=== PATIENT | female | born 1980 | race Caucasian/White ===

== ENCOUNTER 2017-01-18 04:32 | Observation (INO) ==
[2017-01-18] MEDS ORDERED: diazePAM 5 MG TABLET PO ONE (05:00)
[2017-01-18] MEDS ORDERED: *HR* HYDROmorphone (PF) 1 MG/ML SYRINGE IM ONE (05:00)
--- NOTE | 2017-01-18 05:18 | Emergency Department Note ---
Disposition Clinical Impression: Lumbar radiculopathy, Intractable pain Disposition: Admitted As Inpatient Condition: Good Back Pain HPI - General Chief Complaint: ED Back Pain/Injury Stated Complaint: lower back pain Time Seen by Provider: 01/18/17 04:38 Source: patient, EMS Mode of arrival: ambulatory Limitations: no limitations Nursing Notes Reviewed: Yes Vital Signs Reviewed: Yes - History of Present Illness HPI Narrative: Patient presents to the ED with the chief complaint of low back pain. Patient has a long-standing history of back pain and has seen multiple specialists including neurology and pain management. She has had injections previously. States that she recently had a colonoscopy for rectal bleeding, which was unremarkable. States that she woke up yesterday with low back pain. It has been progressively worse since then. She describes it as bilateral in her lower back, across her sacrum, but his significant way, worse on the right. She complains of pain with range of motion of her right lower extremity. She states that this is the same pain as she has had previously, only more intense. No fever, chills, chest pain, shortness of breath, abdominal pain, nausea, vomiting, diarrhea, dysuria, hematuria, vaginal bleeding or discharge. She states that she has been moving around a lot more so than usual and was walking around at her son's T-ball game yesterday. She does state that she had one episode of urinary incontinence yesterday. Denies any numbness, tingling, weakness to her lower extremities. No saddle paresthesia. No associated trauma - Related Data Home Medications Medication Instructions Recorded Confirmed BuPROPion XL (24 HR) [Wellbutrin 150 mg PO DAILY 01/01/17 01/18/17 XL] Citalopram Hydrobromide 40 mg PO DAILY 01/01/17 01/18/17 [Citalopram HBr] Baclofen [Lioresal] 10 mg PO TID 01/18/17 01/18/17 Hydroxyzine HCl 50 mg PO QID PRN 01/18/17 01/18/17 Norgestimate-Ethinyl Estradiol 1 tab PO DAILY 01/18/17 01/18/17 [Sprintec 28 Day Tablet] Oxycodone HCl/Acetaminophen 1 tab PO Q6H PRN 01/18/17 01/18/17 [Percocet 7.5-325 mg Tablet] Allergies Allergy/AdvReac Type Severity Reaction Status Date / Time gabapentin Allergy Hives Verified 01/01/17 14:08 Penicillins Allergy Hives Verified 01/01/17 14:08 phenytoin [From Dilantin] Allergy Hives Verified 01/01/17 14:08 naproxen AdvReac See Verified 01/01/17 14:08 Comments All systems ED: reviewed and negative except as stated. Musculoskeletal: Reports: back pain, arthralgia Past Medical History - Past Medical History Attestation: Yes The following information was validated with the patient. Source: patient Medical history: Reports: arthritis, other Surgical history: Reports: appendectomy, cholecystectomy, other Psychiatric history: Reports: depression LIGHT TRUCK DRIVER history: Reports: no LIGHT TRUCK DRIVER history - Social History Smoking Status: Current every day smoker Smokeless Tobacco Status: No Alcohol use: Reports: occasionally Drug use: Reports: none Physical Exam - General Limitations: no limitations General appearance: alert, anxious, other (Appears to be in) - Head Head exam: atraumatic, normocephalic, normal inspection - Neck Neck exam: Present: normal inspection, full ROM, trachea midline - Chest Chest inspection: Present: normal inspection, symmetric chest wall rise - Respiratory Respiratory exam: Present: normal lung sounds bilaterally - Cardiovascular Cardiovascular exam: Present: regular rate, normal rhythm, normal heart sounds - Abdominal Exam Abdominal exam: Present: soft, Non-Tender. Absent: tenderness, distention, guarding, rebound, rigidity - Extremities Exam Extremities exam: Present: normal inspection, full ROM. Absent: tenderness, pedal edema - Expanded Lower Extremity Exam Hip/Pelvis exam: Present: tenderness (R hip, right piriformis). Absent: swelling, deformity, crepitus, dislocation, erythema Upper leg exam: Present: normal inspection, full ROM Knee exam: Present: normal inspection, full ROM Lower leg exam: Present: normal inspection, full ROM Ankle exam: Present: normal inspection, full ROM Foot/toe exam: Present: normal inspection, full ROM Neurovascular/Tendon exam: Present: normal capillary refill Gait: antalgic - Back Exam Back exam: Present: tenderness (Lower lumbar tenderness), muscle spasm, vertebral tenderness, straight leg raise (R). Absent: rashes - Neurological Exam Neurological exam: Present: alert, oriented X3 - Expanded Neurological Exam Patient oriented to: Present: person, place, time Speech: Present: fluid speech Motor strength - LUE: 5/5 Motor strength - RUE: 5/5 Motor strength - LLE: 5/5 Motor strength - RLE: 5/5 Upper motor neuron exam: allison neglect: Absent bilaterally Sensory exam upper extremity: light touch: Normal Sensory exam lower extremity: light touch: Normal DTR: bicep (L): 2+, bicep (R): 2+, patellar (L): 3+, patellar (R): 3+, Achilles tendon (L): 3+, Achilles tendon (R): 3+ Spinal cord function: Absent: saddle anesthesia Coma Scale Eye Opening: Spontaneous Coma Scale Motor Response: Obeys Commands Coma Scale Verbal Response: Oriented Coma Scale Total: 15 - Psychiatric Psychiatric exam: Present: normal affect, anxious. Absent: normal mood - Skin Skin exam: Present: warm, dry, intact, normal color Course Course Narrative: 29-year-old female presenting with atraumatic low back pain. History of low back pain. History rheumatoid arthritis. Has pain is similar to her previous episodes of back pain but more intense. Started yesterday and was awoken with pain. No fever. No IV drug use. We will get a CT and control her pain. - Reevaluation(s) Reevaluation #1: Lumbar CT is unchanged from previous, but does show significant degenerative changes. However, the patient is still in significant amount of pain, moaning, unable to find a position of comfort. The Dilaudid did help her pain. Initially, but the second dose, did not. Patient was redosed with very little relief. She still seems very much in pain. We will check labs, read as Dilaudid and will also add Ativan and Benadryl, as well as dexamethasone. We will likely need to admit the patient for intractable pain. She will be signed out to the daytime team, Dr. García and Dr. Zhang. Time: 06:50 Vital Signs Temperature 98 F 01/18/17 04:34 Pulse Rate 96 01/18/17 04:34 Respiratory Rate 18 01/18/17 04:34 Blood Pressure 164/105 01/18/17 04:34 O2 Sat by Pulse Oximetry 98 01/18/17 04:34 Temperature 98.8 F 01/18/17 15:50 Pulse Rate 119 01/18/17 15:50 Respiratory Rate 18 01/18/17 15:50 Blood Pressure 158/78 01/18/17 15:50 O2 Sat by Pulse Oximetry 92 01/18/17 15:50 Oxygen Delivery Oxygen Delivery Room Air Back Pain/Injury - Lab Data Result diagrams: 01/18/17 04:50 01/18/17 04:50 Lab Results 01/18/17 01/18/17 01/18/17 Range/Units 04:50 04:50 04:50 WBC 10.2 (4.3-11.1) K/mcL RBC 4.07 (3.82-4.97) M/mcL Hgb 13.1 (11.5-15.4) g/dL Hct 40.9 (35.3-44.9) % MCV 100.5 H (83.0-100.0) fL MCH 32.2 (28.0-33.3) pg MCHC 32.0 (31.6-35.5) g/dL RDW 12.8 (11.5-14.5) % Plt Count 283 (140-400) K/mcL MPV 9.2 L (9.4-12.4) fL Immature Gran % 0.4 (0-4) % Seg Neutrophils % 56.5 % Lymphocytes % 28.5 % Monocytes % 9.6 % Eosinophils % 4.0 % Basophils % 1.0 % Neutrophils # 5.7 (1.6-8.9) K/mcL Lymphocytes # 2.9 (0.6-4.6) K/mcL Monocytes # 1.0 (0.0-1.3) K/mcL Eosinophils # 0.4 (0.0-0.6) K/mcL Basophils # 0.1 (0.0-0.2) K/mcL ESR 28 H (0-15) mm/hr Sodium 140 (136-145) mEq/L Potassium 3.7 (3.5-4.5) mEq/L Chloride 103 (98-109) mEq/L Carbon Dioxide 29 (19-29) mEq/L BUN 10 (7-20) mg/dL Creatinine 0.84 (0.57-1.11) mg/dL Est GFR ( Amer) > 60 (> 60) Est GFR (Non-Af Amer) > 60 (> 60) BUN/Creatinine Ratio 12 (6-26) Glucose 94 (70-99) mg/dL Calculated Osmolality 289 (280-300) Calcium 8.9 (8.6-10.8) mg/dL C-Reactive Protein 13 H (Less than 5) mg/L S.B.A.R. - S.B.A.R. Situation: Demographics, MOA Background: Presenting Complaint, Relevant PMH, Meds, & Allergies Assessment: Vital Signs, Course and respsone to treatment, Exam Concerns, Patient/Family Expectation, Pertinant Lab Results, Outstanding Labs Recommendation: Barrier(s) to disposition, Recommendation based on pending studies, treatments, or consults S.B.A.R. Report Given to: Dr. Vicente Juarez Repor Time: 06:53 Attestation Statement - Attestation Attestation: I, Contreras Tejeda MD, personally performed a history and physical exam of the patient and discussed their management with the resident. I reviewed the resident's note and agree with the documented findings, medical decision making , and plan of care. 37-year-old female with history of chronic lower back pain presents to the emergency department with a complaint of acute worsening of her lower back pain over the past one day. She awoke yesterday morning with increased pain and the discomfort progressively worse throughout the day and night. No fall or other new injuries. Pain is across the lower back but worse on the right side and into the right hip. Some radiation into the right leg. No new numbness tingling or weakness. No new or different symptoms however patient states pain is just worse than usual. She is [facility] for her back pain and also sees pain management and neurology. She has had previous MRIs and injections with no prior back surgery. She states that she did have an episode of some urinary incontinence yesterday. She has had this symptom once previously also. On examination patient is a well-developed obese female in no acute distress but appears to be in moderate discomfort. She is alert and oriented 3. There is no cyanosis or diaphoresis. Breath sounds are clear and equal bilaterally. Heart regular with a mild tachycardia. Abdomen soft and nontender with normal bowel sounds. Diffuse lumbar area tenderness. Straight leg raising is positive on the right. DTRs are increased but equal bilaterally. Normal dorsiflexion and plantarflexion of feet and toes. CT of the lumbar spine shows some degenerative changes and disc bulge but no significant spinal stenosis and no significant change from previous MRI from . Patient continued to have severe pain despite multiple medications. Lab work was ordered and at shift change the patient is being signed out to the oncoming dayshift team, Dr. Zhang and Dr. garcía.
[2017-01-18] MEDS ORDERED: *HR* HYDROmorphone 2 MG/ML SYRINGE IM ONE (06:07)
[2017-01-18] MEDS: *HR* HYDROmorphone 2 MG/ML SYRINGE IM ONE ×2 (06:38→06:50)
[2017-01-18] MEDS ORDERED: *HR* LORazepam 2 MG/ML VIAL IVP ONE (06:44)
[2017-01-18] MEDS ORDERED: *HR* HYDROmorphone (PF) 1 MG/ML SYRINGE IVP ONE (06:44)
[2017-01-18] MEDS ORDERED: Dexamethasone 4 MG/ML VIAL IVP ONE (06:48)
[2017-01-18 07:25] LABS: Basophils # 0.1 K/mcL (0.0-0.2); Eosinophils # 0.4 K/mcL (0.0-0.6); Hematocrit 40.9 % (35.3-44.9); Hemoglobin 13.1 g/dL (11.5-15.4); Immature Granulocytes % 0.4 % (0-4); Lymphocytes # 2.9 K/mcL (0.6-4.6); Lymphocytes % 28.5 %; Mean Corpuscular Hemoglobin 32.2 pg (28.0-33.3); Mean Corpuscular Volume 100.5 fL (83.0-100.0); Mean Platelet Volume 9.2 fL (9.4-12.4); Monocytes % 9.6 %; Neutrophils # 5.7 K/mcL (1.6-8.9); Platelet Count 283 K/mcL (140-400); Red Blood Count 4.07 M/mcL (3.82-4.97); Red Cell Distribution Width 12.8 % (11.5-14.5); Segmented Neutrophils % 56.5 %
[2017-01-18 07:26] LABS: BUN/Creatinine Ratio 12 (6-26); Blood Urea Nitrogen 10 mg/dL (7-20); C-Reactive Protein 13 mg/L (Less than 5); Calcium 8.9 mg/dL (8.6-10.8); Carbon Dioxide 29 mEq/L (19-29); Chloride 103 mEq/L (98-109); Glucose 94 mg/dL (70-99); Osmolality,Calculated 289 (280-300); Potassium 3.7 mEq/L (3.5-4.5); Sodium 140 mEq/L (136-145); eGFR For African Americans > 60 (> 60); eGFR For Non-African Americans > 60 (> 60)
[2017-01-18] MEDS ORDERED: Naloxone 0.4 MG/ML INJ IVP PRN (08:17)
[2017-01-18] MEDS ORDERED: hydrOXYzine pamoate 25 MG CAPSULE PO PRN (08:18)
--- NOTE | 2017-01-18 08:42 | Emergency Department Note ---
Disposition Clinical Impression: Lumbar radiculopathy, Intractable pain Disposition: Admitted As Inpatient Condition: Good Time of Disposition: 08:11 Back Pain HPI - General Chief Complaint: ED Back Pain/Injury Stated Complaint: lower back pain Time Seen by Provider: 01/18/17 04:38 Source: patient, EMS Limitations: no limitations Nursing Notes Reviewed: Yes Vital Signs Reviewed: Yes - History of Present Illness HPI Narrative: Pt Came in over night and taken care of Dr Tejeda and Dr Logan. Please see their note. - Related Data Home Medications Medication Instructions Recorded Confirmed BuPROPion XL (24 HR) [Wellbutrin 150 mg PO DAILY 01/01/17 01/18/17 XL] Citalopram Hydrobromide 40 mg PO DAILY 01/01/17 01/18/17 [Citalopram HBr] Baclofen [Lioresal] 10 mg PO TID 01/18/17 01/18/17 Hydroxyzine HCl 50 mg PO QID PRN 01/18/17 01/18/17 Norgestimate-Ethinyl Estradiol 1 tab PO DAILY 01/18/17 01/18/17 [Sprintec 28 Day Tablet] Oxycodone HCl/Acetaminophen 1 tab PO Q6H PRN 01/18/17 01/18/17 [Percocet 7.5-325 mg Tablet] Allergies Allergy/AdvReac Type Severity Reaction Status Date / Time gabapentin Allergy Hives Verified 01/01/17 14:08 Penicillins Allergy Hives Verified 01/01/17 14:08 phenytoin [From Dilantin] Allergy Hives Verified 01/01/17 14:08 naproxen AdvReac See Verified 01/01/17 14:08 Comments Review of Systems: Please see Dr Key note. All systems ED: reviewed and negative except as stated. 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 TELEMARKETING history - Social History Smoking Status: Current every day smoker Smokeless Tobacco Status: No Alcohol use: Reports: occasionally Drug use: Reports: none Physical Exam - General Limitations: no limitations General appearance: alert, anxious, other (Appears to be in pain) - Head Head exam: atraumatic, normocephalic, normal inspection - Eye Eye exam: Present: normal appearance, EOMI - ENT ENT exam: normal exam - Neck Neck exam: Present: normal inspection, full ROM, trachea midline - Chest Chest inspection: Present: normal inspection - Respiratory Respiratory exam: Present: normal lung sounds bilaterally. Absent: respiratory distress - Cardiovascular Cardiovascular exam: Present: regular rate, normal rhythm, normal heart sounds - Abdominal Exam Abdominal exam: Present: soft, Non-Tender - Extremities Exam Extremities exam: Present: normal inspection, full ROM, normal capillary refill. Absent: tenderness, pedal edema - Neurological Exam Neurological exam: Present: alert, oriented X3 Course Course Narrative: Assume care from Dr. Logan. Patient has ambulated throughout the department without assistance several times however she is moaning while she is in bed. She states that her pain is still there and is requesting admission to the hospital for pain management. Dr Trimble accepted Pt in stable condition. Vital Signs Temperature 98 F 01/18/17 04:34 Pulse Rate 96 01/18/17 04:34 Respiratory Rate 18 01/18/17 04:34 Blood Pressure 164/105 01/18/17 04:34 O2 Sat by Pulse Oximetry 98 01/18/17 04:34 Temperature 98.4 F 01/18/17 10:51 Pulse Rate 57 01/18/17 10:51 Respiratory Rate 20 01/18/17 10:51 Blood Pressure 174/92 01/18/17 10:51 O2 Sat by Pulse Oximetry 100 01/18/17 10:51 Oxygen Delivery Oxygen Delivery Room Air Back Pain/Injury - Medical Records Medical records reviewed: Yes I reviewed the patient's medical records. - Lab Data Result diagrams: 01/18/17 04:50 01/18/17 04:50 Lab Results 01/18/17 01/18/17 01/18/17 Range/Units 04:50 04:50 04:50 WBC 10.2 (4.3-11.1) K/mcL RBC 4.07 (3.82-4.97) M/mcL Hgb 13.1 (11.5-15.4) g/dL Hct 40.9 (35.3-44.9) % MCV 100.5 H (83.0-100.0) fL MCH 32.2 (28.0-33.3) pg MCHC 32.0 (31.6-35.5) g/dL RDW 12.8 (11.5-14.5) % Plt Count 283 (140-400) K/mcL MPV 9.2 L (9.4-12.4) fL Immature Gran % 0.4 (0-4) % Seg Neutrophils % 56.5 % Lymphocytes % 28.5 % Monocytes % 9.6 % Eosinophils % 4.0 % Basophils % 1.0 % Neutrophils # 5.7 (1.6-8.9) K/mcL Lymphocytes # 2.9 (0.6-4.6) K/mcL Monocytes # 1.0 (0.0-1.3) K/mcL Eosinophils # 0.4 (0.0-0.6) K/mcL Basophils # 0.1 (0.0-0.2) K/mcL ESR 28 H (0-15) mm/hr Sodium 140 (136-145) mEq/L Potassium 3.7 (3.5-4.5) mEq/L Chloride 103 (98-109) mEq/L Carbon Dioxide 29 (19-29) mEq/L BUN 10 (7-20) mg/dL Creatinine 0.84 (0.57-1.11) mg/dL Est GFR ( Amer) > 60 (> 60) Est GFR (Non-Af Amer) > 60 (> 60) BUN/Creatinine Ratio 12 (6-26) Glucose 94 (70-99) mg/dL Calculated Osmolality 289 (280-300) Calcium 8.9 (8.6-10.8) mg/dL C-Reactive Protein 13 H (Less than 5) mg/L - Radiology Data Radiology results reviewed: Yes I reviewed the patient's radiology results. Hip CT 01/18/17 05:03 IMPRESSION: No acute osseous abnormality of the right hip. Mild osteoarthrosis. D/ / 01/18/2017 07:17:19 [email or web address] Interpreting Provider: Jamie Leblanc MD Lumbar Spine CT 01/18/17 05:03 IMPRESSION: Scoliosis, associated with multilevel spondylosis. L5-S1 left paracentral disc protrusion and moderate left foraminal narrowing. L4-5 mild posterior disc bulge. The findings are not significantly changed compared with 08/30/2015. D/ / Mendoza Christian MD / Mendoza Christian MD Interpreting Provider: Mendoza Christian MD Attestation Statement - Attestation Attestation: I examined this patient and my medical decision-making was reviewed with the BACK HOE MACHINE OPERATOR/PA/Advanced Practice Nurse/Resident Physician. I agree with the documented findings, disposition and treatment plan as described except to the extent set forth below. Patient signed out pending labs. Lab studies unremarkable. No white count. Sedimentation rate and CRP within acceptable range. She is admitted for intractable back pain.
[2017-01-18] MEDS: Famotidine 20 MG TABLET PO SCH ×2 (09:12→19:48)
[2017-01-18] MEDS: *HR* Morphine 2 MG/ML SYRINGE IVP PRN ×2 (09:12→13:37)
[2017-01-18] MEDS: BuPROPion XL (24 HR) 150 MG TABLET PO SCH (09:12)
[2017-01-18] MEDS: Baclofen 10 MG TABLET PO SCH ×3 (09:12→19:48)
[2017-01-18] MEDS: Ketorolac 30 MG/ML VIAL IVP PRN (11:00)
[2017-01-18] MEDS: *HR* OxyCODONE/APAP 7.5/325 TABLET PO PRN ×2 (12:06→19:48)
--- NOTE | 2017-01-18 12:12 | Internal Med History&Physical ---
Date of Encounter: 01/18/17 Time of Encounter: 12:10 Assessment and Plan (1) Intractable pain Current visit: Yes Status: Acute this is probably an exacerbation of chronic back pain. she follows with pain management doctor at [facility] and has had multiple injections. She was given multiple Dilaudid shots at the ED, she still complains of persistent pain. He reports that the pain medication does not last long even though if it works for a while. Will add Percocet with IV Toradol for moderate and morphine for severe pain. CT did not show any new abnormality or pathology at this time. If the pain is still persistent, may consider calling pain management. will also consult PT/OT (2) Rheumatoid arthritis Current visit: Yes Status: Acute follows with her quartz mounter at [facility]. she reports mainly the pain is at her hands and the back. Qualifiers: Rheumatoid arthritis location: unspecified site Rheumatoid factor presence : unspecified presence Qualified Code(s): M06.9 - Rheumatoid arthritis, unspecified Internal Medicine - H&P: HPI Chief complaint: back pain Admitted From: Home Plans for Post Hospital Care: Home History of present illness: Ms. Simpson is a 37 year old female with PMH of Rheumatoid arthritis and long -standing history of back pain and has seen multiple specialists including neurology and pain management. She has had injections previously. States that she recently had a colonoscopy for rectal bleeding, which was unremarkable. States that she woke up yesterday with low back pain. It has been progressively worse since then. She describes it as bilateral in her lower back, across her sacrum, worse on the right. She complains of pain with range of motion of her right lower extremity. She states that this is the same pain as she has had previously, only more intense. No fever, chills, chest pain, shortness of breath, abdominal pain, nausea, vomiting, diarrhea, dysuria, hematuria, vaginal bleeding or discharge. She states that she has been moving around a lot more so than usual and was walking around at her son's T-ball game yesterday. She does state that she had one episode of urinary incontinence yesterday. Denies any numbness, tingling, weakness to her lower extremities. No saddle paresthesia. No associated trauma. CT lumbar spine was done that does not show any new changes. she is being admitted for pain control. Past Med Surg Social Fam HX - Past Medical History Medical history: arthritis, other Psychiatric history: depression - Past Surgical History Surgical History: appendectomy, cholecystectomy, other - Social History Smoking Status: Current every day smoker Packs per day: <1 Smokeless Tobacco Status: No Alcohol use: occasionally Drug use: none - Family History Father Hx Family Cardiac Disorders: Yes Hx Family Endocrine Disorder: Yes (diabetes) Internal Medicine - H&P: Meds BuPROPion XL (24 HR) [Wellbutrin XL] 150 mg PO DAILY 01/01/17 [History] Citalopram Hydrobromide [Citalopram HBr] 40 mg PO DAILY 01/01/17 [History] Baclofen [Lioresal] 10 mg PO TID 01/18/17 [History] Hydroxyzine HCl 50 mg PO QID PRN 01/18/17 [History] Norgestimate-Ethinyl Estradiol [Sprintec 28 Day Tablet] 1 tab PO DAILY 01/18/17 [History] Oxycodone HCl/Acetaminophen [Percocet 7.5-325 mg Tablet] 1 tab PO Q6H PRN [History] Allergies gabapentin Allergy (Verified 01/01/17 14:08) Hives Penicillins Allergy (Verified 01/01/17 14:08) Hives phenytoin [From Dilantin] Allergy (Verified 01/01/17 14:08) Hives naproxen Adverse Reaction (Verified 01/01/17 14:08) See Comments "Eats my bowel lining." All Systems PM: A 10-system review of systems was performed and is negative for pertinent findings except as documented above in the HPI. - Constitutional Vitals: Temp Pulse Resp BP Pulse Ox 98.4 F 57 20 174/92 100 01/18/17 10:51 01/18/17 10:51 01/18/17 10:51 01/18/17 10:51 01/18/17 10:51 General appearance: Present: mild distress, A&O X 3 Exam: - Head Head exam: atraumatic, normocephalic, normal inspection - Neck Neck exam: Present: normal inspection, full ROM, trachea midline - Chest Chest inspection: Present: normal inspection, symmetric chest wall rise - Respiratory Respiratory exam: Present: normal lung sounds bilaterally - Cardiovascular Cardiovascular exam: Present: regular rate, normal rhythm, normal heart sounds - Abdominal Exam Abdominal exam: Present: soft, Non-Tender. Absent: tenderness, distention, guarding, rebound, rigidity - Extremities Exam Extremities exam: Present: normal inspection, full ROM. Absent: tenderness, pedal edema Gait: antalgic - Back Exam Back exam: Present: tenderness (Lower lumbar tenderness) more on the right side , muscle spasm, Absent: rashes - Neurological Exam Neurological exam: Present: alert, oriented X3 Internal Med - H&P Results - Labs CBC & Chem 7: 01/18/17 04:50 01/18/17 04:50
[2017-01-19] MEDS: *HR* Morphine 2 MG/ML SYRINGE IVP PRN ×2 (00:48→08:13)
[2017-01-19] MEDS: Ketorolac 30 MG/ML VIAL IVP PRN ×2 (01:41→14:27)
[2017-01-19 05:15] LABS: Basophils # 0.1 K/mcL (0.0-0.2); Basophils % 0.5 %; Eosinophils # 0.1 K/mcL (0.0-0.6); Eosinophils % 0.5 %; Hematocrit 36.9 % (35.3-44.9); Hemoglobin 11.9 g/dL (11.5-15.4); Immature Granulocytes % 0.7 % (0-4); Lymphocytes # 2.6 K/mcL (0.6-4.6); Lymphocytes % 16.9 %; Mean Corpuscular HGB Conc 32.2 g/dL (31.6-35.5); Mean Corpuscular Hemoglobin 32.1 pg (28.0-33.3); Mean Corpuscular Volume 99.5 fL (83.0-100.0); Mean Platelet Volume 9.1 fL (9.4-12.4); Monocytes # 1.4 K/mcL (0.0-1.3); Monocytes % 8.9 %; Neutrophils # 11.2 K/mcL (1.6-8.9); Platelet Count 268 K/mcL (140-400); Red Blood Count 3.71 M/mcL (3.82-4.97); Red Cell Distribution Width 12.7 % (11.5-14.5); Segmented Neutrophils % 72.5 %
[2017-01-19] MEDS: *HR* OxyCODONE/APAP 7.5/325 TABLET PO PRN (05:15)
[2017-01-19 05:22] LABS: BUN/Creatinine Ratio 15 (6-26); Blood Urea Nitrogen 12 mg/dL (7-20); Calcium 9.1 mg/dL (8.6-10.8); Carbon Dioxide 25 mEq/L (19-29); Chloride 106 mEq/L (98-109); Glucose 125 mg/dL (70-99); Osmolality,Calculated 289 (280-300); Potassium 4.1 mEq/L (3.5-4.5); Sodium 139 mEq/L (136-145); eGFR For African Americans > 60 (> 60); eGFR For Non-African Americans > 60 (> 60)
[2017-01-19] MEDS: Baclofen 10 MG TABLET PO SCH ×3 (08:13→21:37)
[2017-01-19] MEDS: BuPROPion XL (24 HR) 150 MG TABLET PO SCH (08:13)
[2017-01-19] MEDS: Famotidine 20 MG TABLET PO SCH ×2 (08:13→21:36)
[2017-01-19] MEDS ORDERED: diazePAM 10 MG/2 ML SYRINGE IVP STA (09:13)
[2017-01-19] MEDS: *HR* OxyCODONE Immed Rel 5 MG TABLET PO PRN ×2 (10:54→17:10)
--- NOTE | 2017-01-19 19:15 | Internal Med Progress Note ---
Date of Encounter: 01/19/17 Time of Encounter: 08:45 - Assessment and plan (1) Intractable pain Current Visit: Yes Status: Acute Assessment and plan: Patient with history of chronic lower back pain. I called [facility] pain clinic to speak with patient's pain doctor Dr. Jv quinteros but he was not in the office and his physician marketing operations assistant Rashaun kindly spoke to me. Patient has been treated at [facility] pain clinic for a skeletal strain and myalgia. She had nerve block at S1-S4 level on June 2016. Her last follow-up appointment was December 18 and she was referred to [place] [facility] to be seen by Dr. yee and have an MRI of the lumbar spine. Reviewing our prior records, patient had an epidural injection on 11/22/15. Patient had MRI of the lumbar spine on August 27 showing disease and osteophytes resulting in narrowing of the neuroforamina on the right T11-T12, right L4-L5, left L5-S1. No significant stenosis of the thecal sac in the lumbar region. This admission, CT of the lumbar spine revealed scoliosis, multilevel spondylolisthesis, L5-S1 left paracentral this presentation, moderate left foraminal narrowing, L4-L5 mild posterior disc bulge. Findings are unchanged compared to 08/30/2015. CT of the Hip showed no acute rashes abnormality, mild osteoarthrosis. I explained to the patient my conversation with Darlene, her test results , her diagnosis and treatment. I will start patient on IV Valium or muscle relaxants sensation and continue oral pain medications. If pain improves, I will discharge patient to home tomorrow. Patient verbalized understanding and agree with the plan. (2) Rheumatoid arthritis Current Visit: Yes Status: Chronic Qualifiers: Rheumatoid arthritis location: unspecified site Rheumatoid factor presence : unspecified presence Qualified Code(s): M06.9 - Rheumatoid arthritis, unspecified - Subjective Interval history: Patient reports severe lower back pain on exertion. No nausea. No vomiting. - Constitutional Vitals: Temp Pulse Resp BP Pulse Ox 98.8 F 86 16 138/81 96 01/19/17 14:55 01/19/17 14:55 01/19/17 14:55 01/19/17 14:55 01/19/17 14:55 General appearance: Present: cooperative, mild distress, A&O X 3, pleasant, answers questions appropriately - Neck Neck exam general surgery: Present: supple, trachea midline. Absent: lymphadenopathy - Respiratory Respiratory exam: Present: CTAB - Cardiovascular Cardiovascular exam: Present: RRR - GI/Abdominal GI/Abdominal exam: Present: normal bowel sounds, soft. Absent: distended, tenderness - Extremities Exam Extremities exam: Absent: pedal edema - Back Exam Back exam: Absent: CVA tenderness (L), CVA tenderness (R) - Neurological Exam Neurological exam: Present: alert, oriented X3, no focal deficits, strengths equal and symetr throughout. Absent: facial droop, speech deficit - Skin Skin exam: Absent: rash Internal Medicine: Result - Labs CBC & Chem 7: 01/19/17 04:13 01/19/17 04:13 Labs: Short CBC 01/19/17 Range/Units 04:13 WBC 15.4 H D (4.3-11.1) K/mcL Hgb 11.9 (11.5-15.4) g/dL Hct 36.9 (35.3-44.9) % Plt Count 268 (140-400) K/mcL Neutrophils # 11.2 H (1.6-8.9) K/mcL BMP 01/19/17 04:13 Sodium 139 Potassium 4.1 Chloride 106 Carbon Dioxide 25 BUN 12 Creatinine 0.80 Glucose 125 H Calcium 9.1 Consult Discharge Plan - Plan Referrals: Gian Cancino MD [Primary Care Provider] -
[2017-01-19] MEDS ORDERED: diazePAM 5 MG TABLET PO PRN (20:00)
[2017-01-20] MEDS: *HR* OxyCODONE Immed Rel 5 MG TABLET PO PRN ×2 (02:25→08:46)
[2017-01-20 03:04] LABS: Basophils # 0.1 K/mcL (0.0-0.2); Basophils % 0.7 %; Eosinophils # 0.3 K/mcL (0.0-0.6); Eosinophils % 2.4 %; Hematocrit 36.9 % (35.3-44.9); Hemoglobin 12.1 g/dL (11.5-15.4); Immature Granulocytes % 0.5 % (0-4); Lymphocytes # 3.8 K/mcL (0.6-4.6); Lymphocytes % 31.7 %; Mean Corpuscular HGB Conc 32.8 g/dL (31.6-35.5); Mean Corpuscular Hemoglobin 32.6 pg (28.0-33.3); Mean Corpuscular Volume 99.5 fL (83.0-100.0); Mean Platelet Volume 9.1 fL (9.4-12.4); Monocytes # 0.8 K/mcL (0.0-1.3); Monocytes % 6.9 %; Neutrophils # 6.9 K/mcL (1.6-8.9); Platelet Count 248 K/mcL (140-400); Red Blood Count 3.71 M/mcL (3.82-4.97); Red Cell Distribution Width 12.9 % (11.5-14.5); Segmented Neutrophils % 57.8 %
[2017-01-20 03:19] LABS: BUN/Creatinine Ratio 17 (6-26); Blood Urea Nitrogen 14 mg/dL (7-20); Calcium 8.7 mg/dL (8.6-10.8); Carbon Dioxide 24 mEq/L (19-29); Chloride 107 mEq/L (98-109); Glucose 127 mg/dL (70-99); Magnesium 1.4 mg/dL (1.6-2.6); Osmolality,Calculated 292 (280-300); Phosphorous 3.3 mg/dL (2.3-4.7); Potassium 3.8 mEq/L (3.5-4.5); Sodium 140 mEq/L (136-145); eGFR For African Americans > 60 (> 60); eGFR For Non-African Americans > 60 (> 60)
[2017-01-20 06:43] VITALS: BP 156/75
[2017-01-20] MEDS ORDERED: Magnesium Sulfate 1 GM in D5% in Water 100 ML IVPB ONE (07:36)
[2017-01-20] MEDS: Ketorolac 30 MG/ML VIAL IVP PRN (07:38)
[2017-01-20] MEDS: BuPROPion XL (24 HR) 150 MG TABLET PO SCH (07:40)
[2017-01-20] MEDS: Baclofen 10 MG TABLET PO SCH (07:40)
[2017-01-20] MEDS: Famotidine 20 MG TABLET PO SCH (07:40)
--- NOTE | 2017-01-20 08:53 | Discharge Summary ---
Date of Encounter: 01/20/17 Time of Encounter: 08:30 - Discharge Diagnosis (1) Intractable pain Priority: Primary Status: Acute (2) Rheumatoid arthritis Priority: Secondary Status: Chronic Qualifiers: Rheumatoid arthritis location: unspecified site Rheumatoid factor presence : unspecified presence Qualified Code(s): M06.9 - Rheumatoid arthritis, unspecified - Discharge Medications Prescriptions: Diazepam [Valium] 5 mg PO BID PRN #10 tablet PRN Reason: Spasms Home Medications: BuPROPion XL (24 HR) [Wellbutrin Xl] 150 mg PO DAILY 01/01/17 [History] Citalopram Hydrobromide [Citalopram HBr] 40 mg PO DAILY 01/01/17 [History] Baclofen [Lioresal] 10 mg PO TID 01/18/17 [History] Hydroxyzine HCl 50 mg PO QID PRN 01/18/17 [History] Norgestimate-Ethinyl Estradiol [Sprintec 28 Day Tablet] 1 tab PO DAILY 01/18/17 [History] Oxycodone HCl/Acetaminophen [Percocet 7.5-325 mg Tablet] 1 tab PO Q6H PRN [History] Diazepam [Valium] 5 mg PO BID PRN #10 tablet 01/20/17 [Rx] Allergies/Adverse Reactions: Allergies gabapentin Allergy (Verified 01/01/17 14:08) Hives Penicillins Allergy (Verified 01/01/17 14:08) Hives phenytoin [From Dilantin] Allergy (Verified 01/01/17 14:08) Hives naproxen Adverse Reaction (Verified 01/01/17 14:08) See Comments "Eats my bowel lining." Date of admission: 01/18/17 08:27 Primary care physician: Gian Cancino MD - Patient Status Disposition: Home, Self-Care Condition: Good Functional capacity at discharge: independent ambulation Overall status at discharge: patient is progressing back to baseline - Discharge Instructions Follow Up With: Gian Cancino MD [Primary Care Provider] - (OFFICE IS CLOSED-PLEASE CALL SUNDAY FOR FOLLOW-UP IN 1 WEEK) Additional Instructions: PLEASE RETURN TO YOUR PAIN CLINIC THIS COMING SUNDAY JANUARY 22, 2017 FOR A FOLLOW UP VISIT. FOLLOW UP IN THE NEUROLOGY CLINIC AT [facility] RECOMMENDED BY YOUR PAIN CLINIC DOCTOR. STOP SMOKING. FOLLOW UP WITH YOUR PRIMARY CARE DOCTOR TO START A WEIGHT LOSS PROGRAM AND HELP YOU IN QUITTING SMOKING. TAKE MEDICATIONS PRESCRIBED. - Diet and Activity Activity: resume usual activities as tolerated Diet: low fat, low cholesterol, low salt diet, other Interval History: Patient reports her lower back pain is better compared to admission. She would like to go home and have a follow-up appointment at [facility] pain clinic this coming Sunday. She also called [place] [facility] clinic yesterday and requested a first-visit outpatient appointment as per Dr Carias's recommendation. Hospital course: Ms. Simpson is a 37 year old female with past medical history of chronic lower back pain and tobacco use. On 01/19, I called [facility] pain clinic to speak with patient's pain doctor Dr. Jv Montemayor; however, he was not in the office and his physician culinary assistant Rashaun kindly spoke to me. Patient has been treated at [facility] pain clinic for a musculoskeletal strain and myalgia. She had a nerve block at S1-S4 level on June 2016. Her last follow-up appointment was December 18 when she referred to [place] [facility] for her leg symptoms and an MRI of the lumbar spine. Reviewing our prior records, patient had an epidural injection on 11/22/15. Patient had MRI of the lumbar spine on August 2015 showing disease and osteophytes resulting in narrowing of the neuroforamina on the right T11-T12, right L4-L5, left L5-S1. No significant stenosis of the thecal sac in the lumbar region. This admission, CT of the lumbar spine revealed scoliosis, multilevel spondylolisthesis, L5-S1 left paracentral this presentation, moderate left foraminal narrowing, L4-L5 mild posterior disc bulge. Findings are unchanged compared to 08/30/2015. CT of the Hip showed no acute rashes abnormality, mild osteoarthrosis. Patient received IV Valium with some improvement of her lower back pain. PLAN: follow up at [facility] pain clinic this coming Sunday. f/u in the neurology clinic at [facility]. Patient verbalized understanding and agree with the plan. I answered all questions. - Time Spent with Patient Total time spent providing and/or coordinating discharge services: - Constitutional Vitals: Temp Pulse Resp BP Pulse Ox 97.7 F 90 20 156/75 95 01/20/17 06:41 01/20/17 06:41 01/20/17 06:41 01/20/17 06:41 01/20/17 06:41 General appearance: Present: cooperative, mild distress, A&O X 3, pleasant, answers questions appropriately - Respiratory Respiratory exam: Present: CTAB - Cardiovascular Cardiovascular exam: Present: RRR - GI/Abdominal GI/Abdominal exam: Present: normal bowel sounds, soft. Absent: distended, tenderness - Extremities Exam Extremities exam: Absent: pedal edema - Back Exam Back exam: Present: CVA tenderness (L), CVA tenderness (R), paraspinal tenderness - Neurological Exam Neurological exam: Present: alert, oriented X3, no focal deficits, strengths equal and symetr throughout. Absent: facial droop, speech deficit - Skin Skin exam: Absent: rash
[2017-01-20] MEDS ORDERED: *HR* OxyCODONE Immed Rel 5 MG TABLET PO ONE (12:04)
== END 2017-01-20 12:47 | disposition home or self-care (01) ==
LOC: EMEROO 04:32 → 3NENU 04:32
PROVIDERS: ADMIT Internal Medicine Endocrinology, Diabetes & Metabolism; ATTEND Internal Medicine

== ENCOUNTER 2018-12-19 12:10 | Observation (INO) ==
[2018-12-19 14:23] LABS: Bilirubin,Urine Small (Negative); Blood,Urine Negative (Negative); Clarity,Urine Clear (Clear); Color,Urine Dark Yellow (Yellow); Glucose,Urine (UA) Normal (Normal); Ketones,Urine Negative (Negative); Leukocyte Esterase,Urine Negative (Negative); Nitrite,Urine Negative (Negative); PH,Urine 5.5 pH Units (5.0-8.0); Protein,Urine 30 mg/dL (Neg-Trace); Specific Gravity,Urine 1.023 (1.010-1.025); Urobilinogen,Urine Normal (Normal)
[2018-12-19 14:27] LABS: Bacteria,Urine Few per hpf (None-Few); Hyaline Casts,Urine None Seen per lpf (None-Few); Squamous Epithelial Cell,Urine Many per lpf (None-Few)
[2018-12-19 14:59] LABS: Basophils # 0.1 K/mcL (0.0-0.2); Basophils % 0.4 %; Eosinophils # 0.4 K/mcL (0.0-0.6); Eosinophils % 3.2 %; Hematocrit 44.9 % (35.3-44.9); Immature Granulocytes % 0.3 % (0-4); Lymphocytes # 2.9 K/mcL (0.6-4.6); Mean Corpuscular HGB Conc 33.4 g/dL (31.6-35.5); Mean Corpuscular Hemoglobin 32.5 pg (28.0-33.3); Mean Corpuscular Volume 97.2 fL (83.0-100.0); Monocytes # 0.8 K/mcL (0.0-1.3); Neutrophils # 8.4 K/mcL (1.6-8.9); Platelet Count 330 K/mcL (140-400); Red Blood Count 4.62 M/mcL (3.82-4.97); Red Cell Distribution Width 13.1 % (11.5-14.5); Segmented Neutrophils % 67.1 %
[2018-12-19] MEDS ORDERED: *HR* FentaNYL (PF) 100 MCG/2 ML VIAL IVP ONE ×2 (15:14→17:55)
[2018-12-19] MEDS ORDERED: Ondansetron 4 MG/2 ML VIAL IVP ONE (15:14)
[2018-12-19 15:17] LABS: Alanine Aminotransferase 15 Units/L (7-52); Albumin/Globulin Ratio 1.2 (1.1-2.2); Alkaline Phosphatase 53 Units/L (34-104); Amylase 28 Units/L (29-103); Aspartate Amino Transferase 12 Units/L (13-39); BUN/Creatinine Ratio 13 (6-26); Bilirubin,Indirect 0.4 mg/dL (0.0-1.2); Bilirubin,Total 0.4 mg/dL (0.3-1.0); Blood Urea Nitrogen 11 mg/dL (6-20); Calcium 9.4 mg/dL (8.6-10.3); Carbon Dioxide 25 mEq/L (23-29); Chloride 103 mEq/L (98-107); Globulin 3.4 g/dL (2.4-3.5); Glucose 103 mg/dL (70-105); Lipase 6 Units/L (11-82); Osmolality,Calculated 282 (280-300); Potassium 3.9 mEq/L (3.5-5.1); Sodium 136 mEq/L (136-145); Total Protein 7.4 g/dL (6.4-8.9); eGFR For Non-African Americans > 60 (> 60)
--- NOTE | 2018-12-19 15:17 | Emergency Department Note ---
Disposition Clinical Impression: Ileus, Intractable nausea and vomiting, Abdominal pain Disposition: Admitted As Inpatient Condition: Fair Instructions: Abdominal Pain (ED) Referrals: NONE,PCP [Primary Care Provider] - Forms: ED Satisfaction Letter, Work/School Release General Adult HPI - General Chief complaint: ED Abdominal Pain Stated complaint: Vomiting,Consipation Time Seen by Provider: 12/19/18 12:59 - History of Present Illness Pain Scale: 7 - Related Data Home Medications Medication Instructions Recorded Confirmed RX: BuPROPion XL (24 HR) 150 mg PO DAILY 01/01/17 01/18/17 [Wellbutrin Xl] Percocet 7.5-325 mg Tablet 06/10/18 Previous Rx's Medication Instructions Recorded RX: PredniSONE [Deltasone] 60 mg PO DAILY 5 Days tablet 06/10/18 Ondansetron ODT [Zofran ODT] 4 mg SL Q8HR #20 tab.rapdis 12/17/18 Polyethylene Glycol 3350 [MiraLAX] 17 gm PO DAILY #10 powd.pack 12/17/18 Allergies Allergy/AdvReac Type Severity Reaction Status Date / Time gabapentin Allergy Hives Verified 12/19/18 13:13 Penicillins Allergy Hives Verified 12/19/18 13:13 phenytoin [From Dilantin] Allergy Hives Verified 12/19/18 13:13 naproxen AdvReac See Verified 12/19/18 13:13 Comments Past Medical History - Past Medical History Medical history: Reports: non-contributory, other Surgical history: Reports: appendectomy, cholecystectomy, other Psychiatric history: Reports: depression WAIT STAFF history: Reports: no WAIT STAFF history - Social History Smoking Status: Current every day smoker Smokeless Tobacco Status: No Alcohol use: Reports: occasionally Drug use: Reports: none Course Vital Signs Temperature 99.1 F 12/19/18 13:11 Pulse Rate 104 12/19/18 13:11 Respiratory Rate 16 12/19/18 13:11 Blood Pressure 124/80 12/19/18 13:11 O2 Sat by Pulse Oximetry 95 12/19/18 13:11 Temperature 99.1 F 12/19/18 15:36 Pulse Rate 97 12/19/18 18:08 Respiratory Rate 16 12/19/18 18:08 Blood Pressure 118/67 12/19/18 18:08 O2 Sat by Pulse Oximetry 100 12/19/18 18:08 Oxygen Delivery Oxygen Delivery Room Air Medical Decision Making - Lab Data Result diagrams: 12/19/18 12:59 12/19/18 12:59 Lab Results 12/19/18 12/19/18 12/19/18 Range/Units 12:59 12:59 14:05 WBC 12.6 H (4.3-11.1) K/mcL RBC 4.62 (3.82-4.97) M/mcL Hgb 15.0 D (11.5-15.4) g/dL Hct 44.9 (35.3-44.9) % MCV 97.2 (83.0-100.0) fL MCH 32.5 (28.0-33.3) pg MCHC 33.4 (31.6-35.5) g/dL RDW 13.1 (11.5-14.5) % Plt Count 330 (140-400) K/mcL MPV 9.0 L (9.4-12.4) fL Immature Gran % 0.3 (0-4) % Seg Neutrophils % 67.1 % Lymphocytes % 23.0 % Monocytes % 6.0 % Eosinophils % 3.2 % Basophils % 0.4 % Neutrophils # 8.4 (1.6-8.9) K/mcL Lymphocytes # 2.9 (0.6-4.6) K/mcL Monocytes # 0.8 (0.0-1.3) K/mcL Eosinophils # 0.4 (0.0-0.6) K/mcL Basophils # 0.1 (0.0-0.2) K/mcL Sodium 136 (136-145) mEq/L Potassium 3.9 (3.5-5.1) mEq/L Chloride 103 (98-107) mEq/L Carbon Dioxide 25 (23-29) mEq/L BUN 11 (6-20) mg/dL Creatinine 0.85 (0.60-1.20) mg/dL Est GFR ( Amer) > 60 (> 60) Est GFR (Non-Af Amer) > 60 (> 60) BUN/Creatinine Ratio 13 (6-26) Glucose 103 (70-105) mg/dL Calculated Osmolality 282 (280-300) Lactic Acid (0.5-2.2) mmol/L Calcium 9.4 (8.6-10.3) mg/dL Total Bilirubin 0.4 (0.3-1.0) mg/dL Direct Bilirubin 0.0 (0.0-0.2) mg/dL Indirect Bilirubin 0.4 (0.0-1.2) mg/dL AST 12 L (13-39) Units/L ALT 15 (7-52) Units/L Alkaline Phosphatase 53 (34-104) Units/L Serum Total Protein 7.4 (6.4-8.9) g/dL Albumin 4.0 (3.5-5.7) g/dL Globulin 3.4 (2.4-3.5) g/dL Albumin/Globulin Ratio 1.2 (1.1-2.2) Amylase 28 L (29-103) Units/L Lipase 6 L (11-82) Units/L Urine Color Dark Yellow (Yellow) Urine Clarity Clear (Clear) Urine pH 5.5 (5.0-8.0) pH Units Ur Specific Rosamond 1.023 (1.010-1.025) Urine Protein 30 H (Neg-Trace) mg/dL Urine Glucose (UA) Normal (Normal) mg/dL Urine Ketones Negative (Negative) mg/dL Urine Blood Negative (Negative) Urine Nitrite Negative (Negative) Urine Bilirubin Small H (Negative) Urine Urobilinogen Normal (Normal) mg/dL Ur Leukocyte Esterase Negative (Negative) Urine Microscopic RBC 5-15 H (0-3) per hpf Urine Microscopic WBC 3-5 H (0-3) per hpf Ur Squamous Epith Cells Many H (None-Few) per lpf Urine Bacteria Few (None-Few) per hpf Hyaline Casts None Seen (None-Few) per lpf Ur Culture Indicated? NO (NO) Urine Test (Negative) 12/19/18 12/19/18 Range/Units 14:05 14:36 WBC (4.3-11.1) K/mcL RBC (3.82-4.97) M/mcL Hgb (11.5-15.4) g/dL Hct (35.3-44.9) % MCV (83.0-100.0) fL MCH (28.0-33.3) pg MCHC (31.6-35.5) g/dL RDW (11.5-14.5) % Plt Count (140-400) K/mcL MPV (9.4-12.4) fL Immature Gran % (0-4) % Seg Neutrophils % % Lymphocytes % % Monocytes % % Eosinophils % % Basophils % % Neutrophils # (1.6-8.9) K/mcL Lymphocytes # (0.6-4.6) K/mcL Monocytes # (0.0-1.3) K/mcL Eosinophils # (0.0-0.6) K/mcL Basophils # (0.0-0.2) K/mcL Sodium (136-145) mEq/L Potassium (3.5-5.1) mEq/L Chloride (98-107) mEq/L Carbon Dioxide (23-29) mEq/L BUN (6-20) mg/dL Creatinine (0.60-1.20) mg/dL Est GFR ( Amer) (> 60) Est GFR (Non-Af Amer) (> 60) BUN/Creatinine Ratio (6-26) Glucose (70-105) mg/dL Calculated Osmolality (280-300) Lactic Acid 1.8 (0.5-2.2) mmol/L Calcium (8.6-10.3) mg/dL Total Bilirubin (0.3-1.0) mg/dL Direct Bilirubin (0.0-0.2) mg/dL Indirect Bilirubin (0.0-1.2) mg/dL AST (13-39) Units/L ALT (7-52) Units/L Alkaline Phosphatase (34-104) Units/L Serum Total Protein (6.4-8.9) g/dL Albumin (3.5-5.7) g/dL Globulin (2.4-3.5) g/dL Albumin/Globulin Ratio (1.1-2.2) Amylase (29-103) Units/L Lipase (11-82) Units/L Urine Color (Yellow) Urine Clarity (Clear) Urine pH (5.0-8.0) pH Units Ur Specific Rosamond (1.010-1.025) Urine Protein (Neg-Trace) mg/dL Urine Glucose (UA) (Normal) mg/dL Urine Ketones (Negative) mg/dL Urine Blood (Negative) Urine Nitrite (Negative) Urine Bilirubin (Negative) Urine Urobilinogen (Normal) mg/dL Ur Leukocyte Esterase (Negative) Urine Microscopic RBC (0-3) per hpf Urine Microscopic WBC (0-3) per hpf Ur Squamous Epith Cells (None-Few) per lpf Urine Bacteria (None-Few) per hpf Hyaline Casts (None-Few) per lpf Ur Culture Indicated? (NO) Urine Test Negative (Negative) Attestation Statement - Attestation Attestation: I examined this patient and my medical decision-making was reviewed with the Resident Physician. I agree with the documented findings, disposition and treatment plan as described except to the extent set forth below. Ctta-qs-[id number] time provided Patient presents with ongoing abdominal pain, nausea, vomiting. She was seen in this emergency department 3 days ago with similar symptoms and diagnosed with an ileus. She states the Phenergan is not working. She reports a history of partial bowel obstructions due to abdominal surgeries from trauma. She is uncomfortable appearing. I did review the transcribed report of the CT abdomen and pelvis dated 3 days ago
--- NOTE | 2018-12-19 15:44 | Emergency Department Note ---
Disposition Clinical Impression: Ileus Intractable nausea and vomiting Qualifiers: Vomiting type: unspecified Qualified Code(s): R11.2 - Nausea with vomiting, unspecified Abdominal pain Qualifiers: Abdominal location: generalized Qualified Code(s): R10.84 - Generalized abdominal pain Disposition: Admitted As Inpatient Condition: Fair Instructions: Abdominal Pain (ED) Referrals: NONE,PCP [Primary Care Provider] - Forms: ED Satisfaction Letter, Work/School Release General Adult HPI - General Chief complaint: ED Abdominal Pain Stated complaint: Vomiting,Consipation Time Seen by Provider: 12/19/18 12:59 Source: patient Mode of arrival: ambulatory Limitations: no limitations Nursing Notes Reviewed: Yes Vital Signs Reviewed: Yes - History of Present Illness HPI Narrative: This Is a 38-year-old female with past medical history significant for previous bowel resection, cholecystectomy, appendectomy who presents with nausea, vomiting, diarrhea over the past 4 days. Patient was in the ED on 12/17/18. Presented with similar symptoms. CT of the abdomen at that time showed evidence of possible ileus without obstruction. Patient was discharged home with stool softener and Zofran. She was told to follow-up with PCP. However, over the past 2 days, patient states that her symptoms have been worsening. Notes worsening nausea and multiple episodes of vomiting. Notes she attempted to eat as of last night, but eating only made the nausea worse. Also describes "spasm of her stomach", difficulty sleeping, heartburn that "spreads from her stomach all the way up to her throat". She states that symptoms have been intermittent over the past 2 months, but have only been persistent over the past few days. Also describes very poor smelling belches on and off for the past few months. Associated with alternating episodes of constipation and diarrhea. Recently she noticed diarrhea which has been explosive in nature, frequently, and in small amounts. Patient denies hematemesis, hematuria, melena, hematochezia. Denies fevers/chills, blurry vision, headache, chest pain, palpitations, shortness of breath. Patient has history of hemorrhoids in the past, and has history of GI bleed secondary to NSAID use. Pt Subjective Complaint: Vomiting, Constipation Onset (ago): day(s) (3 days ago) Location: abdomen Radiation: non-radiation Pain Severity: moderate Pain Scale: 7 Quality: aching, dull, constant Consistency: constant Improves with: nothing Worsens with: eating Associated symptoms: Reports: loss of appetite, malaise, nausea/vomiting. Denies: confusion, chest pain, cough, diaphoresis, fever/chills, headaches, rash, shortness of breath, weakness Treatments Prior to Arrival: none - Related Data Home Medications Medication Instructions Recorded Confirmed BuPROPion XL (24 HR) [Wellbutrin 150 mg PO DAILY 01/01/17 01/18/17 Xl] Percocet 7.5-325 mg Tablet 06/10/18 Previous Rx's Medication Instructions Recorded PredniSONE [Deltasone] 60 mg PO DAILY 5 Days tablet 06/10/18 Ondansetron ODT [Zofran ODT] 4 mg SL Q8HR #20 tab.rapdis 12/17/18 Polyethylene Glycol 3350 [MiraLAX] 17 gm PO DAILY #10 powd.pack 12/17/18 Allergies Allergy/AdvReac Type Severity Reaction Status Date / Time gabapentin Allergy Hives Verified 12/19/18 13:13 Penicillins Allergy Hives Verified 12/19/18 13:13 phenytoin [From Dilantin] Allergy Hives Verified 12/19/18 13:13 naproxen AdvReac See Verified 12/19/18 13:13 Comments All systems ED: reviewed and negative except as stated. Constitutional: Denies: fever, chills, weakness Eyes: Denies: vision change ENT ED: Denies: hearing loss, congestion Cardiovascular: Denies: chest pain, palpitations, edema Respiratory: Denies: cough, dyspnea Gastrointestinal: Reports: abdominal pain, nausea, vomiting, diarrhea, constipation. Denies: hematemesis, melena, hematochezia Genitourinary: Denies: urgency, dysuria Musculoskeletal: Denies: back pain Integumentary: Denies: rash Neurological: Reports: weakness. Denies: headache Endocrine: Reports: fatigue Past Medical History - Past Medical History Attestation: Yes The following information was validated with the patient. 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 - Social History Smoking Status: Current every day smoker Smokeless Tobacco Status: No Alcohol use: Reports: occasionally Drug use: Reports: none Physical Exam - General Limitations: no limitations General appearance: alert, in no apparent distress - Head Head exam: atraumatic, normocephalic, normal inspection - Eye Eye exam: Present: PERRL, EOMI - ENT ENT exam: normal exam, normal oropharynx, mucous membranes moist - Respiratory Respiratory exam: Present: normal lung sounds bilaterally - Cardiovascular Cardiovascular exam: Present: regular rate, normal rhythm, normal heart sounds, +S1, +S2 - Abdominal Exam Abdominal exam: Present: soft, tenderness (Diffuse tenderness to palpation; no guarding or rebound tenderness; bowel sounds present), normal bowel sounds. Absent: distention, guarding, rebound Abdominal tenderness: Present: diffuse - Neurological Exam Neurological exam: Present: alert, oriented X3, CN II-XII intact - Psychiatric Psychiatric exam: Present: normal affect, normal mood - Skin Skin exam: Present: warm Course Course Narrative: 38-year-old female with history significant for previous bowel resection, cholecystectomy, appendectomy presents with nausea, vomiting, and diarrhea over the course of the past 4 days. Evaluated in the ED 2 days ago on 12/17/18. Previous CT of the abdomen showed possible ileus without obstruction. Patient was using Zofran as needed, and milk of magnesia, but experience worsening symptoms. Notes worsening nausea and multiple episodes of vomiting. On arrival, patient was given Zofran and pain control. Abdominal series was notable for no acute abdominal process, no free intraperitoneal air, no signs of obstruction. Patient reported mild improvement after initial dose of Zofran, but on reevaluation patient was nauseated and reported continued abdominal pain. Spoke with Dr. Holliday who agreed to accept patient to hospitalist service due to intolerance of by mouth intake, nausea, vomiting. We will give bolus of IV fluids, IV Phenergan, and continue with pain control. - Reevaluation(s) Reevaluation #1: Patient seen and examined with Dr. Walton. Lab work essentially benign. Lactic acid within normal limits. Amylase and lipase within normal limits. Patient given IV Zofran and fentanyl for pain control. Will order abdominal series. Time: 16:00 Reevaluation #2: Abdominal series shows no acute cardiopulmonary process identified, and nonobstructive bowel gas pattern. Patient seen in in a bedside. Reported mild improvement initially after IV Zofran, but currently notes she remains nauseated, and continues to have abdominal pain. States that she does not feel like she can go home if she still is unable to eat anything. Believe she may benefit from admission to hospital. Time: 16:50 Reevaluation #3: Spoke with hospitalist Dr. Holliday who agreed to accept patient for admission the hospital service. Time: 17:50 Vital Signs Temperature 99.1 F 12/19/18 13:11 Pulse Rate 104 12/19/18 13:11 Respiratory Rate 16 12/19/18 13:11 Blood Pressure 124/80 12/19/18 13:11 O2 Sat by Pulse Oximetry 95 12/19/18 13:11 Temperature 99.1 F 12/19/18 15:36 Pulse Rate 104 12/19/18 16:55 Respiratory Rate 20 12/19/18 16:55 Blood Pressure 105/61 12/19/18 16:55 O2 Sat by Pulse Oximetry 100 12/19/18 16:55 Oxygen Delivery Oxygen Delivery Room Air Medical Decision Making - MDM Narrative Medical decision making narrative: [id number] female with history of previous bowel resection, cholecystectomy, appendectomy presents to ED with nausea/vomiting/diarrhea for 4 days. Recently seen in the ED 2 days ago. Discharged with Zofran a stool softener. However patient returns today with worsening symptoms. On physical exam, patient looks dehydrated and in moderate distress. Otherwise abdominal exam is benign. Initially responded to Zofran and pain control. However symptoms returned shortly thereafter. Abdominal series notable for no acute abdominal process, no free intraperitoneal air. CT of the abdomen and pelvis 2 days ago was notable for possible ileus without obstruction. Given intolerance of by mouth intake, continued nausea, vomiting, discussed option of being admitted for further workup with patient. Patient stated that she does not want to go home if she cannot eat anything because of her nausea. Discussed admission with Dr. Holliday who agreed to accept patient the hospitalist service. - Differential Diagnosis Ileus, small bowel obstruction, gastroenteritis - Medical Records Medical records reviewed: Yes I reviewed the patient's medical records. - Lab Data Lab results reviewed: Yes I reviewed the patient's lab results. Result diagrams: 12/19/18 12:59 12/19/18 12:59 Lab Results 12/19/18 12/19/18 12/19/18 Range/Units 12:59 12:59 14:05 WBC 12.6 H (4.3-11.1) K/mcL RBC 4.62 (3.82-4.97) M/mcL Hgb 15.0 D (11.5-15.4) g/dL Hct 44.9 (35.3-44.9) % MCV 97.2 (83.0-100.0) fL MCH 32.5 (28.0-33.3) pg MCHC 33.4 (31.6-35.5) g/dL RDW 13.1 (11.5-14.5) % Plt Count 330 (140-400) K/mcL MPV 9.0 L (9.4-12.4) fL Immature Gran % 0.3 (0-4) % Seg Neutrophils % 67.1 % Lymphocytes % 23.0 % Monocytes % 6.0 % Eosinophils % 3.2 % Basophils % 0.4 % Neutrophils # 8.4 (1.6-8.9) K/mcL Lymphocytes # 2.9 (0.6-4.6) K/mcL Monocytes # 0.8 (0.0-1.3) K/mcL Eosinophils # 0.4 (0.0-0.6) K/mcL Basophils # 0.1 (0.0-0.2) K/mcL Sodium 136 (136-145) mEq/L Potassium 3.9 (3.5-5.1) mEq/L Chloride 103 (98-107) mEq/L Carbon Dioxide 25 (23-29) mEq/L BUN 11 (6-20) mg/dL Creatinine 0.85 (0.60-1.20) mg/dL Est GFR ( Amer) > 60 (> 60) Est GFR (Non-Af Amer) > 60 (> 60) BUN/Creatinine Ratio 13 (6-26) Glucose 103 (70-105) mg/dL Calculated Osmolality 282 (280-300) Lactic Acid (0.5-2.2) mmol/L Calcium 9.4 (8.6-10.3) mg/dL Total Bilirubin 0.4 (0.3-1.0) mg/dL Direct Bilirubin 0.0 (0.0-0.2) mg/dL Indirect Bilirubin 0.4 (0.0-1.2) mg/dL AST 12 L (13-39) Units/L ALT 15 (7-52) Units/L Alkaline Phosphatase 53 (34-104) Units/L Serum Total Protein 7.4 (6.4-8.9) g/dL Albumin 4.0 (3.5-5.7) g/dL Globulin 3.4 (2.4-3.5) g/dL Albumin/Globulin Ratio 1.2 (1.1-2.2) Amylase 28 L (29-103) Units/L Lipase 6 L (11-82) Units/L Urine Color Dark Yellow (Yellow) Urine Clarity Clear (Clear) Urine pH 5.5 (5.0-8.0) pH Units Ur Specific [place] 1.023 (1.010-1.025) Urine Protein 30 H (Neg-Trace) mg/dL Urine Glucose (UA) Normal (Normal) mg/dL Urine Ketones Negative (Negative) mg/dL Urine Blood Negative (Negative) Urine Nitrite Negative (Negative) Urine Bilirubin Small H (Negative) Urine Urobilinogen Normal (Normal) mg/dL Ur Leukocyte Esterase Negative (Negative) Urine Microscopic RBC 5-15 H (0-3) per hpf Urine Microscopic WBC 3-5 H (0-3) per hpf Ur Squamous Epith Cells Many H (None-Few) per lpf Urine Bacteria Few (None-Few) per hpf Hyaline Casts None Seen (None-Few) per lpf Ur Culture Indicated? NO (NO) Urine Test (Negative) 12/19/18 12/19/18 Range/Units 14:05 14:36 WBC (4.3-11.1) K/mcL RBC (3.82-4.97) M/mcL Hgb (11.5-15.4) g/dL Hct (35.3-44.9) % MCV (83.0-100.0) fL MCH (28.0-33.3) pg MCHC (31.6-35.5) g/dL RDW (11.5-14.5) % Plt Count (140-400) K/mcL MPV (9.4-12.4) fL Immature Gran % (0-4) % Seg Neutrophils % % Lymphocytes % % Monocytes % % Eosinophils % % Basophils % % Neutrophils # (1.6-8.9) K/mcL Lymphocytes # (0.6-4.6) K/mcL Monocytes # (0.0-1.3) K/mcL Eosinophils # (0.0-0.6) K/mcL Basophils # (0.0-0.2) K/mcL Sodium (136-145) mEq/L Potassium (3.5-5.1) mEq/L Chloride (98-107) mEq/L Carbon Dioxide (23-29) mEq/L BUN (6-20) mg/dL Creatinine (0.60-1.20) mg/dL Est GFR ( Amer) (> 60) Est GFR (Non-Af Amer) (> 60) BUN/Creatinine Ratio (6-26) Glucose (70-105) mg/dL Calculated Osmolality (280-300) Lactic Acid 1.8 (0.5-2.2) mmol/L Calcium (8.6-10.3) mg/dL Total Bilirubin (0.3-1.0) mg/dL Direct Bilirubin (0.0-0.2) mg/dL Indirect Bilirubin (0.0-1.2) mg/dL AST (13-39) Units/L ALT (7-52) Units/L Alkaline Phosphatase (34-104) Units/L Serum Total Protein (6.4-8.9) g/dL Albumin (3.5-5.7) g/dL Globulin (2.4-3.5) g/dL Albumin/Globulin Ratio (1.1-2.2) Amylase (29-103) Units/L Lipase (11-82) Units/L Urine Color (Yellow) Urine Clarity (Clear) Urine pH (5.0-8.0) pH Units Ur Specific [place] (1.010-1.025) Urine Protein (Neg-Trace) mg/dL Urine Glucose (UA) (Normal) mg/dL Urine Ketones (Negative) mg/dL Urine Blood (Negative) Urine Nitrite (Negative) Urine Bilirubin (Negative) Urine Urobilinogen (Normal) mg/dL Ur Leukocyte Esterase (Negative) Urine Microscopic RBC (0-3) per hpf Urine Microscopic WBC (0-3) per hpf Ur Squamous Epith Cells (None-Few) per lpf Urine Bacteria (None-Few) per hpf Hyaline Casts (None-Few) per lpf Ur Culture Indicated? (NO) Urine Test Negative (Negative) - Radiology Data Radiology results reviewed: Yes I reviewed the patient's radiology results.
[2018-12-19] MEDS ORDERED: 0.9 % Sodium Chloride 1,000 ML IVC ONE (17:48)
[2018-12-19] MEDS ORDERED: *HR* Promethazine 25 MG/ML VIAL IVP PRN (17:53)
[2018-12-19] MEDS ORDERED: *HR* Promethazine 25 MG/ML VIAL ONE (18:00)
[2018-12-19] MEDS ORDERED: Ondansetron 4 MG/2 ML VIAL IVP PRN (20:43)
[2018-12-19] MEDS ORDERED: Isovue-370 500 ML BOTTLE IVP ONE (20:45)
[2018-12-19] MEDS ORDERED: Naloxone 0.4 MG/ML INJ IVP PRN (20:46)
[2018-12-19] MEDS ORDERED: Ketorolac 30 MG/ML VIAL IVP PRN (20:46)
[2018-12-19] MEDS ORDERED: OXYCODONE Oral CONC 10 MG/0.5 ML ORAL.SYG SL PRN (20:46)
[2018-12-19] MEDS: Ringers Solution, Lactated 1,000 ML IVC SCH (21:43)
[2018-12-19 22:17] LABS: Amphetamine Screen,Urine Negative ng/mL (Cutoff=1000); Barbiturate Screen,Urine Negative ng/mL (Cutoff=200); Benzodiazepines Screen,Urine Positive ng/mL (Cutoff=200); Cannabinoid Screen,Urine Positive ng/mL (Cutoff = 50); Cocaine Screen,Urine Negative ng/mL (Cutoff= 300); Opiate Screen,Urine Positive ng/mL (Cutoff=300); Phencyclidine Screen,Urine Negative ng/mL (Cutoff=25)
[2018-12-20] MEDS ORDERED: Famotidine 20 MG/2 ML VIAL IVP ONE (00:13)
--- NOTE | 2018-12-20 00:19 | Internal Med History&Physical ---
Date of Encounter: 12/19/18 Time of Encounter: 20:00 Internal Medicine - H&P: HPI Chief complaint: vomiting Admitted From: Home Plans for Post Hospital Care: Home History of present illness: Ritu Simpson is a 38 year old woman with a history of bowel resection due to obstruction who presented to the emergency room complaining of 4 days of nausea, vomiting and constipation. She was seen in the ER 3 days ago with these complaints, discharged home with antiemetics and a stool softener but presents again saying there has been no improvement in her symptoms but rather has been worsening. The vomitus has been nonbloody and just bilious. She has been unable to keep anything down. She describes spastic sensations in her stomach. Although she says that the symptoms have been present over the last 2 months it only acutely worsened in these past couple of days. She reported to the ER physician that her constipation has been intercalated with episodes of diarrhea. She was seen hemodynamically stable. Lab work revealing of a leukocyte count of 12 but otherwise unremarkable. An abdomen x-ray was done which was grossly unrevealing. He was concern for an ileus state and given her upper GI symptoms and if not responded to outpatient therapy she is admitted for observation. At the time of my assessment she appeared to be in notable discomfort. Vitals: Reviewed General: Well-developed white female Skin: Diaphoretic, pale, warm. HEENT: Moist mucous membranes. No conjunctivae pallor. Neck: No lymphadenopathy. No JVD. No carotid bruits. No palpable thyroid. Chest: Normal thoracic expansion. Normal breath sounds. Clear to auscultation. Heart: Normal S1 & S2; rhythmic. No rubs or murmurs. Abdomen: Non-distended, soft and non-tender to palpation. No peritoneal reaction. (+) BS. Extremities: No clubbing, cyanosis or edema. No calf tenderness. Normal distal pulses. Neurological: Awake, alert and oriented to person, place and time. No focal deficits. Psych: Affect appropriate. Past Med Surg Social Fam HX - Past Medical History Medical history: non-contributory, other Additional medical history: bowel obstruction, bowel resection, Psychiatric history: depression - Past Surgical History Surgical History: appendectomy, cholecystectomy, other Additional surgical history: 2 c-sections - Social History Smoking Status: Current every day smoker Packs per day: less than 1 Smokeless Tobacco Status: No Alcohol use: occasionally Drug use: none - Family History Father Living Status: Age at : 61 Hx Family Cardiac Disorders: Yes Hx Family Endocrine Disorder: Yes Hx Family Medical Disorders: Yes (blood clots) Mother Living Status: Still Living Hx Family Cardiac Disorders: Yes Internal Medicine - H&P: Meds No Known Home Drugs 12/19/18 [History] Allergy/AdvReac Type Severity Reaction Status Date / Time gabapentin Allergy Hives Verified 12/19/18 13:13 Penicillins Allergy Hives Verified 12/19/18 13:13 phenytoin [From Dilantin] Allergy Hives Verified 12/19/18 13:13 naproxen AdvReac See Verified 12/19/18 13:13 Comments All Systems PM: A 10-system review of systems was performed and is negative for pertinent findings except as documented above in the HPI. - Constitutional Vitals: Temp Pulse Resp BP Pulse Ox 98.4 F 80 18 118/77 96 12/19/18 23:32 12/19/18 23:32 12/19/18 23:32 12/19/18 23:32 12/19/18 23:32 Exam: . Internal Med - H&P Results - Labs CBC & Chem 7: 12/19/18 12:59 12/19/18 12:59 Labs: Short CBC 12/19/18 Range/Units 12:59 WBC 12.6 H (4.3-11.1) K/mcL Hgb 15.0 D (11.5-15.4) g/dL Hct 44.9 (35.3-44.9) % Plt Count 330 (140-400) K/mcL Neutrophils # 8.4 (1.6-8.9) K/mcL BMP 12/19/18 12:59 Sodium 136 Potassium 3.9 Chloride 103 Carbon Dioxide 25 BUN 11 Creatinine 0.85 Glucose 103 Calcium 9.4 Liver Function 12/19/18 Range/Units 12:59 Total Bilirubin 0.4 (0.3-1.0) mg/dL Direct Bilirubin 0.0 (0.0-0.2) mg/dL AST 12 L (13-39) Units/L ALT 15 (7-52) Units/L Alkaline Phosphatase 53 (34-104) Units/L Albumin 4.0 (3.5-5.7) g/dL Urine 12/19/18 Range/Units 14:05 Urine Color Dark Yellow (Yellow) Urine Clarity Clear (Clear) Urine pH 5.5 (5.0-8.0) pH Units Ur Specific [place] 1.023 (1.010-1.025) Urine Protein 30 H (Neg-Trace) mg/dL Urine Glucose (UA) Normal (Normal) mg/dL - Impressions ITS Impressions Chest/Abdomen X-ray 12/19/18 15:14 IMPRESSION: 1. No acute cardiopulmonary process identified. 2. Nonobstructive bowel gas pattern. D/ / Milo Bill MD / Milo Bill MD Interpreting Provider: Milo Bill MD Abdomen/Pelvis CT 12/19/18 20:45 IMPRESSION: No acute findings. No evidence of ileus or obstruction. Postsurgical changes are stable. D/ / Boo Frankel MD / Boo Frankel MD Interpreting Provider: Boo Frankel MD - Assessment and Plan (1) Intractable nausea and vomiting Current Visit: Yes Status: Acute Assessment and plan: Will obtain a CT abdomen/pelvis to ensure there is no obstructive disease given her symptoms. Will provide anti-emetics and fluid resuscitation. If no obstruction will advance diet from NPO to clear liquids. Symptomatic pain relief measures. Qualifiers: Vomiting type: unspecified Qualified Code(s): R11.2 - Nausea with vomiting, unspecified (2) Chronic pain Current Visit: Yes Status: Acute Assessment and plan: Relates a history of rheumatoid arthritis as well as lumbago. Will provide analgesics as needed. Qualifiers: Chronic pain type: chronic pain syndrome Qualified Code(s): G89.4 - Chronic pain syndrome - Time Spent With Patient Total time spent is greater than 50% in coordination of care (as documented) at patient's floor/unit and/or counseling patient: Greater than 35 minutes
[2018-12-20 05:21] LABS: Basophils % 0.4 %; Eosinophils # 0.4 K/mcL (0.0-0.6); Eosinophils % 3.9 %; Hematocrit 40.1 % (35.3-44.9); Immature Granulocytes % 0.4 % (0-4); Lymphocytes # 2.5 K/mcL (0.6-4.6); Lymphocytes % 22.3 %; Mean Corpuscular HGB Conc 33.2 g/dL (31.6-35.5); Mean Corpuscular Hemoglobin 32.4 pg (28.0-33.3); Mean Corpuscular Volume 97.8 fL (83.0-100.0); Mean Platelet Volume 9.3 fL (9.4-12.4); Monocytes # 0.9 K/mcL (0.0-1.3); Monocytes % 8.2 %; Neutrophils # 7.3 K/mcL (1.6-8.9); Platelet Count 266 K/mcL (140-400); Red Cell Distribution Width 13.2 % (11.5-14.5); Segmented Neutrophils % 64.8 %
[2018-12-20 05:25] LABS: Hemoglobin 13.3 g/dL (11.5-15.4)
[2018-12-20 05:38] LABS: BUN/Creatinine Ratio 16 (6-26); Blood Urea Nitrogen 14 mg/dL (6-20); Calcium 8.6 mg/dL (8.6-10.3); Carbon Dioxide 24 mEq/L (23-29); Chloride 105 mEq/L (98-107); Glucose 86 mg/dL (70-105); Osmolality,Calculated 286 (280-300); Potassium 3.8 mEq/L (3.5-5.1); Sodium 138 mEq/L (136-145); eGFR For Non-African Americans > 60 (> 60)
[2018-12-20] MEDS ORDERED: *HR* Heparin 5,000 UNIT/ML VIAL SQ SCH (06:00)
[2018-12-20 07:13] VITALS: BP 143/82
[2018-12-20] MEDS: Ringers Solution, Lactated 1,000 ML IVC SCH (07:32)
[2018-12-20] MEDS ORDERED: Pantoprazole 40 MG VIAL IVP SCH (09:00)
--- NOTE | 2018-12-20 10:05 | Discharge Summary ---
- NOTES TO OUTPATIENT PROVIDER Notes to Outpatient Provider: Patient with history of chronic low back pain and marijuana use is admitted for recurrent bouts of abdominal pain, nausea/vomiting. No intra-abdominal cause identified on CT scan. No significant electrolyte abnormalities or acute kidney injury. Urine tox screen came back positive for marijuana and concern for cyclic vomiting syndrome associated with THC use. Will be discharged home on PO amitriptyline 50 mg daily in addition to benadryl and zofran. Follow up with GI as outpatient. Advised for complete cessation of THC but pt does not seem very receptive to it and remains at high risk of re-admission due to ongoing use of the offending agent. Date of Encounter: 12/20/18 Time of Encounter: 07:30 - Discharge Diagnosis (1) Intractable nausea and vomiting Priority: Secondary Status: Acute Qualifiers: Vomiting type: cyclical vomiting Qualified Code(s): G43.A1 - Cyclical vomiting, intractable (2) Chronic pain Priority: Secondary Status: Acute Qualifiers: Chronic pain type: chronic pain syndrome Qualified Code(s): G89.4 - Chronic pain syndrome (3) Cyclic vomiting syndrome Priority: Primary Status: Acute Qualifiers: Vomiting Intractability: intractable Nausea presence: with nausea Qualified Code(s): G43.A1 - Cyclical vomiting, intractable Hospital course: Ms. Simpson is a 38 year old female with history of chronic low back pain and marijuana use who was admitted for recurrent bouts of abdominal pain, nausea/vomiting. No intra-abdominal cause identified on CT scan. No significant electrolyte abnormalities or acute kidney injury. Urine tox screen came back positive for marijuana and concern for cyclic vomiting syndrome associated with THC use. Will be discharged home on PO amitriptyline 50 mg daily in addition to benadryl and zofran. Follow up with GI as outpatient. Advised for complete cessation of THC but pt does not seem very receptive to it and remains at high risk of re-admission due to ongoing use of the offending agent. Discharge discussed with: patient, nurse - Time Spent with Patient Total time spent providing and/or coordinating discharge services: 27 mins - Discharge Medications Prescriptions: New DiphenhydraMINE [Benadryl] 12.5 mg PO Q8HR PRN #200 mls PRN Reason: Nausea Amitriptyline [Elavil] 50 mg PO DAILY #30 tablet Ondansetron [Zofran ODT] 8 mg SL Q6H PRN 7 Days #28 tab.rapdis PRN Reason: Nausea And Vomiting Home Medications: Amitriptyline [Elavil] 50 mg PO DAILY #30 tablet 12/20/18 [Rx] DiphenhydraMINE [Benadryl] 12.5 mg PO Q8HR PRN #200 mls 12/20/18 [Rx] Ondansetron [Zofran ODT] 8 mg SL Q6H PRN 7 Days #28 tab.rapdis 12/20/18 [Rx] Allergies/Adverse Reactions: Allergy/AdvReac Type Severity Reaction Status Date / Time gabapentin Allergy Hives Verified 12/19/18 13:13 Penicillins Allergy Hives Verified 12/19/18 13:13 phenytoin [From Dilantin] Allergy Hives Verified 12/19/18 13:13 naproxen AdvReac See Verified 12/19/18 13:13 Comments Date of admission: 12/19/18 18:50 Primary care physician: PCP NONE - Constitutional Vitals: Temp Pulse Resp BP Pulse Ox 97.8 F 82 18 143/82 96 12/20/18 07:08 12/20/18 07:08 12/20/18 07:08 12/20/18 07:08 12/20/18 07:08 Exam: General: Well-developed white female HEENT: Moist mucous membranes. No conjunctivae pallor. Chest: Normal thoracic expansion. Normal breath sounds. Clear to auscultation. Heart: Normal S1 & S2; rhythmic. No rubs or murmurs. Abdomen: Non-distended, soft and non-tender to palpation. No peritoneal reaction. (+) BS. Neurological: Awake, alert and oriented to person, place and time. No focal deficits. Psych: Affect appropriate. - Patient Status Disposition: Home, Self-Care Condition: Fair Functional capacity at discharge: independent ambulation Overall status at discharge: patient is progressing back to baseline - Discharge Instructions Follow Up With: Gian Cancino MD [Non-Partnered Physician] - Kevin Lopez MD [Partnered Physician] - Additional Instructions: Start amitriptyline 50 mg daily for prophylactic therapy of presumed cyclic vomiting syndrome PRN Benadryl and Zofran Complete cessation of THC use advised Follow up with GI - Diet and Activity Activity: resume usual activities as tolerated Diet: advance to your usual diet
== END 2018-12-20 12:31 | disposition home or self-care (01) ==
LOC: EMEROOARM 12:10 → 3ANU 12:10 → SUATTDRO 18:50 → 3ANU 19:55
PROVIDERS: ADMIT Internal Medicine; ATTEND Internal Medicine